=== PATIENT | male | born 1975 | race Caucasian/White ===

== ENCOUNTER 2018-10-25 20:44 | Emergency (ER) | payer OTHER ==
[~2018-10-25] VITALS: Ht 182.9 cm; Wt 108.0 kg
[~2018-10-25 20:44] MED LIST: EFFEXOR XR150 MG PO; OCUFLOX5 ML OPTH; ZOLOFT100 MG PO
[2018-10-25] MEDS ORDERED: BACTRIM 400-801 EACH PO (20:52)
[2018-10-25] MEDS ORDERED: ATENOLOL50 MG PO (20:53)
[2018-10-25] MEDS ORDERED: METFORMIN HCL500 MG PO (21:03)
[2018-10-25] MEDS ORDERED: NORCO 5-325 TA1 EACH PO (21:52)
== END 2018-10-25 22:07 | disposition home or self-care (01) ==
LOC: ED 20:44
DX: L02.411 Cutaneous abscess of right axilla (principal); I10 Essential (primary) hypertension; E11.9 Type 2 diabetes mellitus without complications; F32.9 Major depressive disorder, single episode, unspecified; Z79.899 Other long term (current) drug therapy; Z79.84 Long term (current) use of oral hypoglycemic drugs
CPT/HCPCS: 10060; 99283-25

== ENCOUNTER 2019-11-20 18:28 | Emergency (ER) | payer OTHER ==
[~2019-11-20] VITALS: Ht 182.9 cm; Wt 108.9 kg
[~2019-11-20 18:28] MED LIST changes: +ATENOLOL50 MG PO; +BACTRIM 400-801 EACH PO; +METFORMIN HCL500 MG PO; +NORCO 5-325 TA1 EACH PO
[2019-11-20] MEDS ORDERED: LEXAPRO5 MG PO (18:39)
== END 2019-11-20 19:29 | disposition home or self-care (01) ==
LOC: ED 18:28
PROC: 0HCFXZZ Extirpation of Matter from Right Hand Skin, External Approach (ICD-10-PCS; principal; 2019-11-20)
DX: S60.551A Superficial foreign body of right hand, initial encounter (principal); I10 Essential (primary) hypertension; E11.9 Type 2 diabetes mellitus without complications; F32.9 Major depressive disorder, single episode, unspecified; Z79.899 Other long term (current) drug therapy; W45.8XXA Other foreign body or object entering through skin, initial encounter
CPT/HCPCS: 10120; 99283-25

== ENCOUNTER 2024-02-09 12:41 | Emergency (ER) | payer OTHER ==
[~2024-02-09] VITALS: Ht 182.9 cm; Wt 109.0 kg
[~2024-02-09 12:41] MED LIST changes: +LEXAPRO5 MG PO
[2024-02-09] MEDS ORDERED: TRULICITY4.5 MG/0.5 SQ (12:52)
[2024-02-09] MEDS ORDERED: GLIPIZIDE10 MG PO (12:52)
[2024-02-09] MEDS ORDERED: LOSARTAN POTASS50 MG PO (12:52)
[2024-02-09 13:21] VITALS: BP 145/68
== END 2024-02-09 13:22 | disposition home or self-care (01) ==
LOC: ED 12:41
DX: S61.211A Laceration without foreign body of left index finger without damage to nail, initial encounter (principal); I10 Essential (primary) hypertension; E11.9 Type 2 diabetes mellitus without complications; W26.0XXA Contact with knife, initial encounter; Z79.84 Long term (current) use of oral hypoglycemic drugs; Z79.899 Other long term (current) drug therapy
CPT/HCPCS: 64450; 99282-25